=== PATIENT | male | born 1950 | race Caucasian/White ===

== ENCOUNTER 2017-05-16 12:52 | Emergency (ER) | payer SELFPAY ==
[2017-05-16 13:04] VITALS: BMI 29.0
[2017-05-16 14:44] VITALS: BP 189/98; PULSE 62; RESP 18; TEMP 97.6; O2SAT 100
--- NOTE | 2017-05-16 14:55 | C.PDOC ---
History Of Present Illness 66 y/o male, past medical history of hypertension and Hepatitis C, presents to emergency department via the clinic for elevated blood pressure. Daughter reports that patient was given Lisinopril at the clinic, but blood pressure was unresolved. He reports mild headache currently, which he has had daily for the last few months, after he stopped taking blood pressure medications. Daughter is unsure which medications he regularly took for HTN. Otherwise, denies nausea , vomiting, light sensitivity, trauma or head injury. Denies chest pain, SOB, new weakness or numbness, palpitations, or other associated symptoms. Time Seen by Provider: 05/16/17 13:55 Chief Complaint (Nursing): High Blood Pressure History Per: Patient History/Exam Limitations: no limitations Onset/Duration Of Symptoms: Days Current Symptoms Are (Timing): Still Present Associated Symptoms: Headache. denies: Chest Pain, Dizziness, Blurred Vision, Focal Weakness Recent travel outside of the [place]: No Past Medical History Reviewed: Historical Data, Nursing Documentation, Vital Signs Vital Signs: Last Vital Signs Temp 97.6 F 05/16/17 14:44 Pulse 62 05/16/17 14:44 Resp 18 05/16/17 14:44 BP 189/98 H 05/16/17 14:44 Pulse Ox 100 05/16/17 14:55 - Medical History PMH: HTN Family History: States: Unknown Family Hx - Social History Hx Alcohol Use: No Hx Substance Use: No - Immunization History Hx Tetanus Toxoid Vaccination: No Hx Influenza Vaccination: No Hx Pneumococcal Vaccination: Yes Review Of Systems Except As Marked, All Systems Reviewed And Found Negative. Constitutional: Negative for: Fever, Chills Cardiovascular: Negative for: Chest Pain, Palpitations, Light Headedness Respiratory: Negative for: Cough, Shortness of Breath, Wheezing Gastrointestinal: Negative for: Nausea, Vomiting, Abdominal Pain Musculoskeletal: Negative for: Neck Pain Skin: Negative for: Rash Neurological: Positive for: Headache. Negative for: Weakness, Numbness, Dizziness Physical Exam - Physical Exam Appears: Non-toxic, No Acute Distress Skin: Normal Color, Warm, Dry Head: Atraumatic, Normacephalic Eye(s): bilateral: Normal Inspection, PERRL, EOMI Oral Mucosa: Moist Neck: Normal ROM, No Midline Cervical Tenderness, No Paracervical Tenderness, Supple Chest: Symmetrical Cardiovascular: Rhythm Regular Respiratory: Normal Breath Sounds, No Rales, No Rhonchi, No Wheezing Gastrointestinal/Abdominal: Soft, No Tenderness, No Guarding, No Rebound Back: Normal Inspection Extremity: Normal ROM, Capillary Refill (< 2 sec.) Neurological/Psych: Oriented x3, Normal Speech, Normal Cognition ED Course And Treatment O2 Sat by Pulse Oximetry: 100 (RA) Pulse Ox Interpretation: Normal Medical Decision Making Medical Decision Making: Plan: * Tylenol * Reassess Progress Notes: BP on arrival is 189/98. Patient is ambulatory in ED, awake and alert, and in no acute distress. RX given at clinic as per resident, who called about the patient. The patient has a follow up in the clinic in 2 days. Disposition Counseled Patient/Family Regarding: Diagnosis, Need For Followup - Disposition Referrals: [facility] [Outside] Disposition: HOME/ ROUTINE Disposition Time: 15:09 Condition: STABLE Additional Instructions: Maribell follow up in clinic, as indicated. Instructions: Hypertension (ED) Forms: [facility] ([place]), General Discharge Instructions - POA Present On Arrival: None - Clinical Impression Clinical Impression: Hypertension - Scribe Statement The provider has reviewed the documentation as recorded by the Scribe Paul Anguiano All medical record entries made by the Leeannaibyoanna were at my direction and personally dictated by me. I have reviewed the chart and agree that the record accurately reflects my personal performance of the history, physical exam, medical decision making, and the department course for this patient. I have also personally directed, reviewed, and agree with the discharge instructions and disposition.
== END 2017-05-16 15:36 | disposition home or self-care (01) ==
LOC: C.ER 12:52
DX: I10 Essential (primary) hypertension (principal)

== ENCOUNTER 2018-01-02 16:53 | Emergency (ER) | payer OTHER ==
[2018-01-02 16:53] VITALS: BMI 16.4
[2018-01-02 17:03] VITALS: RESP 18
--- NOTE | 2018-01-02 18:35 | C.PDOC ---
History Of Present Illness 67 year old male presents to the ED c/o left buttock pain that is non radiating but worsens with movement, change in position. Patient reports he took Tylenol at home with minimal relief to his symptoms. Patient denies injury, fall, trauma , heavy lifting, weakness, numbness, saddle anesthesia, bowel/urinary incontinence. Time Seen by Provider: 01/02/18 18:21 Chief Complaint (Nursing): Hip Pain History Per: Patient History/Exam Limitations: no limitations Onset/Duration Of Symptoms: Days Current Symptoms Are (Timing): Still Present Recent travel outside of the [place]: No Additional History Per: Patient - Knee Description Of Injury: Other Currently Unable To: Bend Or Move Alleviating Factor(s): OTC Pain Medication Past Medical History Reviewed: Historical Data, Nursing Documentation, Vital Signs Vital Signs: Last Vital Signs Temp 98.3 F 01/02/18 17:01 Pulse 77 01/02/18 17:01 Resp 18 01/02/18 17:01 BP 149/72 01/02/18 17:01 Pulse Ox 98 01/02/18 19:59 - Medical History PMH: HTN Surgical History: No Surg Hx Family History: States: Unknown Family Hx - Social History Hx Alcohol Use: No Hx Substance Use: No - Immunization History Hx Tetanus Toxoid Vaccination: No Hx Influenza Vaccination: No Hx Pneumococcal Vaccination: Yes Review Of Systems Constitutional: Negative for: Fever, Chills Cardiovascular: Negative for: Chest Pain Respiratory: Negative for: Shortness of Breath Gastrointestinal: Negative for: Nausea, Vomiting Genitourinary: Negative for: Incontinence Musculoskeletal: Positive for: Back Pain, Leg Pain Skin: Negative for: Rash Neurological: Negative for: Weakness, Numbness Physical Exam - Physical Exam Appears: Non-toxic, No Acute Distress Skin: Normal Color, Warm, Dry Head: Atraumatic, Normacephalic Eye(s): bilateral: Normal Inspection Nose: No Discharge Oral Mucosa: Moist Gastrointestinal/Abdominal: Soft, No Tenderness, No Mass, No Distention, No Guarding, No Rebound Back: No Vertebral Tenderness, Other (left sciatic notch tenderness) Extremity: Normal ROM, No Tenderness, Capillary Refill (< 2 seconds), No Swelling Pulses: Left Dorsalis Pedis: Normal, Right Dorsalis Pedis: Normal Neurological/Psych: Oriented x3, Normal Speech Gait: Steady ED Course And Treatment O2 Sat by Pulse Oximetry: 98 (ON RA) Pulse Ox Interpretation: Normal Medical Decision Making Medical Decision Making: Plan: * Toradol 15 mg IM 1952 pt feels much better after todaol, walking comfortably, will d/c home to f/ u pmd Disposition Counseled Patient/Family Regarding: Diagnosis, Need For Followup, Rx Given - Disposition Referrals: [facility] [Outside] Disposition: HOME/ ROUTINE Disposition Time: 19:54 Condition: IMPROVED Additional Instructions: Please follow up with your doctor or in medical clinic in 1-2 days. Take ibuprofen 400 mg by mouth every 4-6 hours for pain; suggested to take with food so as not to upset your stomach. Return to ER for any worse symptoms. Prescriptions: Ibuprofen [Ibu] 400 mg PO Q6 #30 tablet Instructions: Low Back Pain (DC) Forms: [facility] (Citizen Of [place]), General Discharge Instructions - Clinical Impression Clinical Impression: Low back pain - PA / DIRECTOR OF HEALTH CARE MARKETING / Resident Statement MD/DO has reviewed & agrees with the documentation as recorded. - Scribe Statement The provider has reviewed the documentation as recorded by the Scribe Oniel Castrejon All medical record entries made by the Scribe were at my direction and personally dictated by me. I have reviewed the chart and agree that the record accurately reflects my personal performance of the history, physical exam, medical decision making, and the department course for this patient. I have also personally directed, reviewed, and agree with the discharge instructions and disposition.
[2018-01-02 20:06] VITALS: BP 141/81; PULSE 84; TEMP 97.6; O2SAT 99
== END 2018-01-02 20:06 | disposition home or self-care (01) ==
LOC: C.ER 16:53
DX: M54.5 Low back pain (principal); I10 Essential (primary) hypertension
CPT/HCPCS: 96372; 99284; J1885